=== PATIENT | male | born 1940 ===

== ENCOUNTER 2021-10-08 19:42 | Emergency (ER) | payer MEDICARE ==
[2021-10-08 19:52] VITALS: O2SAT 97
--- NOTE | 2021-10-08 20:18 | ERPHSYRPT ---
- History of Present Illness Time Seen by Provider: 10/08/21 19:45 Source: patient, police Exam Limitations: language barrier Physician History: This is an 81-year-old male who speaks only [place] and lives in [place]. He was brought in by law enforcement when witnesses saw him driving back and forth on [place] [address] [place] times. Law enforcement was contacted and he was brought in to our emergency department because of confusion. Upon arrival to emergency department it was determined that he could not speak any [place]. He had no complaints. Ultimately, we spoke with his daughter and she provided history that the patient has had confusion in the past when he had a urinary tract infection. He left this morning to go to a store and then likely became confused and ended up in [facility]. She states that he has a history of hypertension, atrial fibrillation on Xarelto, and prostate issues on Flomax. A silver alert was called out this evening. The family is on his way here. Again, he states he has no complaints. We will check a urine on him and treat his urinary tract infection if he has one and then discharge him to home with his family he has no chest pain. He has no shortness of breath. He has no abdominal pain Timing/Duration: today Associated Symptoms: denies symptoms Travel Risk - International Travel Have you traveled outside of the country in past 3 weeks: No - Coronavirus Screening Are you exhibiting any of the following symptoms?: No Close contact with a COVID-19 positive Pt in past 14-21 Days: No - Review of Systems Constitutional: No Symptoms Eyes: No Symptoms Ears, Nose, & Throat: No Symptoms Respiratory: No Symptoms Cardiac: No Symptoms Abdominal/Gastrointestinal: No Symptoms Genitourinary Symptoms: No Symptoms Musculoskeletal: No Symptoms Skin: No Symptoms Neurological: No Symptoms Psychological: No Symptoms Endocrine: No Symptoms Hematologic/Lymphatic: No Symptoms Immunological/Allergic: No Symptoms All Other Systems: Reviewed and Negative - Past Medical History Pertinent Past Medical History: Yes - Past Surgical History Past Surgical History: Yes - Nursing Vital Signs Nursing Vital Signs: Initial Vital Signs Temperature 98.0 F 10/08/21 19:43 Pulse Rate 94 H 10/08/21 19:43 Respiratory Rate 18 10/08/21 19:43 Blood Pressure 168/97 10/08/21 19:43 O2 Sat by Pulse Oximetry 97 10/08/21 19:43 Pain Scale Pain Intensity 0 - Physical Exam General Appearance: no apparent distress, alert Eye Exam: PERRL/EOMI, eyes nml inspection Ears, Nose, Throat Exam: normal ENT inspection, moist mucous membranes Neck Exam: normal inspection, non-tender, supple, full range of motion Respiratory Exam: normal breath sounds, lungs clear, airway intact, No chest tenderness, No respiratory distress Cardiovascular Exam: regular rate/rhythm, normal heart sounds, normal peripheral pulses Gastrointestinal/Abdomen Exam: soft, normal bowel sounds, No tenderness Rectal Exam: not done Back Exam: normal inspection, normal range of motion, No CVA tenderness, No vertebral tenderness Extremity Exam: normal inspection, normal range of motion, pelvis stable Neurologic Exam: alert, oriented x 3, cooperative, normal mood/affect, nml cerebellar function, nml station & gait, sensation nml Skin Exam: normal color, warm, dry Lymphatic Exam: No adenopathy SpO2 Interpretation: normal SpO2: 97 O2 Delivery: Room Air - Course Nursing assessment & vital signs reviewed: Yes Ordered Tests: Active Orders 24 hr Category Date Time Status UA W/RFX UR CULTURE Stat Lab 10/08/21 20:27 Completed Lab/Rad Data: Laboratory Results 10/08/21 Range/Units 20:27 Urine Color YELLOW (YELLOW) Urine Appearance CLEAR (CLEAR) Urine pH 5.0 (5-6) Ur Specific [place] 1.024 (1.005-1.025) Urine Protein NEGATIVE (Negative) Urine Ketones SMALL (NEGATIVE) Urine Blood NEGATIVE (0-5) Jason/ul Urine Nitrite NEGATIVE (NEGATIVE) Urine Bilirubin NEGATIVE (NEGATIVE) Urine Urobilinogen NEGATIVE (0-1) mg/dL Ur Leukocyte Esterase NEGATIVE (NEGATIVE) Urine WBC (Auto) 0-2 (0-5) /HPF Urine RBC (Auto) 0-2 (0-2) /HPF U Epithel Cells (Auto) RARE (FEW) /HPF Urine Mucus (Auto) SLIGHT (NEGATIVE) /HPF Urine Culture Reflexed NO (NO) Urine Glucose 50 (NEGATIVE) mg/dL - Progress Progress: unchanged Counseled pt/family regarding: diagnosis, need for follow-up - Departure Departure Disposition: Home Clinical Impression: Wandering behavior, Encounter for medical screening examination Condition: Stable Critical Care Time: No Additional Instructions: Continue medication as prescribed. Have patient follow-up with his primary care doctor to be evaluated for possible early dementia.
[2021-10-08 21:20] LABS: Appearance CLEAR (CLEAR); Bilirubin NEGATIVE (NEGATIVE); Blood NEGATIVE Ery/ul (0-5); Epithelial Cells RARE /HPF (FEW); Glucose 50 mg/dL (NEGATIVE); Ketones SMALL (NEGATIVE); Leukocyte Esterase NEGATIVE (NEGATIVE); Mucus SLIGHT /HPF (NEGATIVE); Nitrite NEGATIVE (NEGATIVE); Protein,Urine Dip NEGATIVE (Negative); RBC 0-2 /HPF (0-2); Specific Gravity 1.024 (1.005-1.025); Urobilinogen NEGATIVE mg/dL (0-1); WBC 0-2 /HPF (0-5)
[2021-10-08 21:53] VITALS: BP 145/84; PULSE 93
== END 2021-10-08 21:32 | disposition home or self-care (01) ==
LOC: ED 19:42
DX: Z13.30 Encounter for screening examination for mental health and behavioral disorders, unspecified (principal); R41.0 Disorientation, unspecified; Z91.83 Wandering in diseases classified elsewhere; I10 Essential (primary) hypertension; Z79.01 Long term (current) use of anticoagulants; Z87.440 Personal history of urinary (tract) infections
CPT/HCPCS: 81001; 99283